=== PATIENT | female | born 1980 | race African-American/Black ===

== ENCOUNTER 2019-10-06 16:26 | Outpatient (CLI) | payer SELFPAY ==
[2019-10-06 17:28] LABS: ALT 29 U/L (14-59); AST 23 U/L (15-37); Albumin 3.9 g/dL (3.4-5.0); Alkaline Phosphatase 53 U/L (46-116); Anion Gap 5.9 mmol/L (3-11); BUN 13 mg/dL (7-18); Bilirubin, Total 0.5 mg/dL (0.2-1.0); CO2 27.1 mmol/L (21.0-32.0); CREATININE 0.65 mg/dL (0.55-1.02); Calculated LDL 119 mg/dL (<100); Chloride 102 mmol/L (98-107); Cholesterol 199 mg/dL (<200); Glucose 89 mg/dL (74-106); HDL Cholesterol 64 mg/dL (40-60); Sodium 135 mmol/L (136-145); Total Protein 7.8 g/dL (6.4-8.2); Triglyceride 84 mg/dL (<150)
== END 2019-10-06 16:46 ==
PROVIDERS: PCP Internal Medicine; Visit Provider Obstetrics & Gynecology Gynecology
DX: Z00.00 Encounter for general adult medical examination without abnormal findings (principal)
CPT/HCPCS: 36415; 80053; 80061

== ENCOUNTER 2020-11-30 18:19 | Outpatient (REF) | payer OTHER, SELFPAY ==
[2020-11-30 20:24] LABS: Clarity Clear (Clear)
[2020-11-30 20:32] LABS: WBC >50 HPF (0-5)
[2020-11-30 20:33] LABS: Bacteria Moderate HPF (Negative); C & S Indicated? Yes; Crystals Negative HPF (Negative); Epithelial Cells Few HPF (Negative); Mucus Negative (Negative); Other Cells Few Transitional (Negative)
== END 2020-11-30 18:20 | disposition home or self-care (01) ==
LOC: LBN 18:19
PROVIDERS: PCP Internal Medicine; Visit Provider Obstetrics & Gynecology
DX: R30.0 Dysuria (principal); N39.0 Urinary tract infection, site not specified
CPT/HCPCS: 87077; 81003; 81015; 87086; 87186

== ENCOUNTER 2021-01-25 15:56 | Outpatient (REF) | payer OTHER, SELFPAY ==
--- NOTE | 2021-01-25 15:30 | PAPFT_PTH ---
PATIENT: Alisa Fuentes LOC: [facility] U#:[id number] AGE/SX: 40/F ROOM: RE01/25/[address]: Lisa Parker : 1980 BED: DIS: 01/25/2021 SPEC #: [id number] RECD: 01/25/21 17:41 STATUS: MARINO REGold #: [id number] SANDY: 01/25/21 15:[address]: Lisa Pakrer DEPT: [facility] Cytology RECD BY: Babmi Mcpherson ENTERED: 01/25/21 17:42 SP TYPE: PAPFT OTHR DR: Nate Hurd Tissues: 1 - CX/ENDOCX FOR PAP SMEARS Procedures: PAP THIN PREP/[facility] Screening HPV DNA PROBE Comments: [id number]
== END 2021-01-25 15:57 | disposition home or self-care (01) ==
LOC: LBN 15:56
PROVIDERS: PCP Internal Medicine; Visit Provider Obstetrics & Gynecology Gynecology
DX: Z12.4 Encounter for screening for malignant neoplasm of cervix (principal); Z11.51 Encounter for screening for human papillomavirus (HPV)
CPT/HCPCS: 88142; 87624

== ENCOUNTER 2023-10-31 14:09 | Outpatient (REF) | payer BC, SELFPAY | END 2023-10-31 14:10 | disposition home or self-care (01) | LOC: LBN 14:09 | PROVIDERS: PCP Internal Medicine; Visit Provider Obstetrics & Gynecology Gynecology | DX: N76.0 Acute vaginitis (principal); Z97.5 Presence of (intrauterine) contraceptive device; L29.2 Pruritus vulvae | CPT/HCPCS: 87480; 87510; 87660 ==